=== PATIENT | female | born 1995 | race Caucasian/White ===

== ENCOUNTER 2017-04-25 19:03 | Emergency (ER) | payer BC ==
[~2017-04-25] VITALS: Ht 165.1 cm; Wt 69.1 kg
[2017-04-25 19:08] VITALS: BP 139/93
[2017-04-25 19:38] LABS: HEMATOCRIT 38.6 % (34.6-47.8); HEMOGLOBIN 12.8 g/dL (11.7-16.4); WHITE BLOOD COUNT 11.8 x10^3/uL (3.4-10)
[2017-04-25 19:48] LABS: ASPARTATE AMINO TRANSFERASE 15 U/L (15-37); BLOOD UREA NITROGEN 10 mg/dL (7-18)
[2017-04-25] MEDS ORDERED: CEFTRIAXONE 1,000 MG IM ONE (22:00)
[2017-04-25] MEDS ORDERED: AZITHROMYCIN 500 MG TABLET PO ONE (22:00)
[2017-04-25] MEDS ORDERED: AZITHROMYCIN 250 MG TABLET ONE (22:21)
[2017-04-25] MEDS ORDERED: CEFTRIAXONE 250 MG ONE (22:21)
== END 2017-04-25 22:53 | disposition home or self-care (01) ==
LOC: ED 22:47
DX: R10.2 Pelvic and perineal pain (principal); J45.909 Unspecified asthma, uncomplicated; Z88.0 Allergy status to penicillin; Z90.89 Acquired absence of other organs; Z88.1 Allergy status to other antibiotic agents
CPT/HCPCS: 36415; 76830; 80053; 81001; 83690; 84703; 85025; 87086; 87210; 87491; 87591; 87808; 96372; 99285; J0696

== ENCOUNTER 2017-04-27 08:17 | Emergency (ER) | payer OTHER, BC ==
[~2017-04-27] VITALS: Ht 165.1 cm; Wt 69.1 kg
[2017-04-27 09:00] VITALS: BP 122/76
[2017-04-27] MEDS ORDERED: SODIUM CHLORIDE 0.9% 1,000ML IVBOLUS ONE (09:00)
[2017-04-27] MEDS ORDERED: ONDANSETRON 2MG/ML, 2ML IVPush ONE (09:00)
[2017-04-27] MEDS ORDERED: SODIUM CHLORIDE FLUSH 10ML SYR IVF ONE (09:00)
[2017-04-27] MEDS ORDERED: MORPHINE SULFATE 4 MG/ML, 1ML ONE ×2 (09:13→10:10)
[2017-04-27] MEDS ORDERED: ONDANSETRON 2MG/ML, 2ML ONE (09:13)
[2017-04-27 09:32] LABS: HEMATOCRIT 35.7 % (34.6-47.8); HEMOGLOBIN 11.9 g/dL (11.7-16.4); WHITE BLOOD COUNT 12.7 x10^3/uL (3.4-10)
[2017-04-27] MEDS: MORPHINE SULFATE 4 MG/ML, 1ML IVPush PRN ×2 (09:36→10:12)
[2017-04-27 09:44] LABS: BLOOD UREA NITROGEN 12 mg/dL (7-18)
[2017-04-27] MEDS ORDERED: OMNIPAQUE 350 MG/ML, 100ML BOTTLE ONE (10:04)
[2017-04-27 10:11] LABS: PATH.CAST-FLAG NOT PRESENT; SPERM-FLAG NOT PRESENT; SRC-FLAG NOT PRESENT; XTAL-FLAG NOT PRESENT; YLC-FLAG NOT PRESENT
[2017-04-27] MEDS ORDERED: CEFTRIAXONE PMX 1GM/50ML 50 ML IV ONE (11:00)
[2017-04-27] MEDS ORDERED: CEFTRIAXONE PMX 1GM/50ML 50 ML ONE (11:00)
[2017-04-27] MEDS ORDERED: DOXYCYCLINE 100MG TABLET PO ONE (11:30)
== END 2017-04-27 11:51 | disposition home or self-care (01) ==
LOC: ED 09:34
DX: R10.32 Left lower quadrant pain (principal); N73.0 Acute parametritis and pelvic cellulitis; J45.909 Unspecified asthma, uncomplicated
CPT/HCPCS: 36415; 74177; 80048; 81001; 82040; 85025; 87086; 96361; 96365; 96375; 96376; 99285; J0696; J2405; J7030; Q9967

== ENCOUNTER 2017-05-02 14:24 | Emergency (ER) | payer OTHER, BC ==
[~2017-05-02] VITALS: Ht 165.1 cm; Wt 67.0 kg
[2017-05-02] MEDS ORDERED: KETOROLAC 30 MG/1 ML ONE (15:07)
[2017-05-02] MEDS ORDERED: KETOROLAC 60 MG/2 ML IM ONE (15:30)
[2017-05-02 16:47] VITALS: BP 139/79
== END 2017-05-02 16:49 | disposition home or self-care (01) ==
LOC: ED 16:31
DX: M76.62 Achilles tendinitis, left leg (principal); J45.909 Unspecified asthma, uncomplicated; F17.210 Nicotine dependence, cigarettes, uncomplicated; Z88.1 Allergy status to other antibiotic agents
CPT/HCPCS: 93971; 96372; 99284; J1885

== ENCOUNTER 2019-02-03 12:46 | Emergency (ER) | payer BC, OTHER ==
[~2019-02-03] VITALS: Ht 165.1 cm; Wt 72.4 kg
[2019-02-03 12:51] VITALS: BP 110/65
[2019-02-03 13:29] LABS: HCG UR SG 1.032 (1.003-1.030)
[2019-02-03] MEDS ORDERED: DEXAMETHASONE 4 MG/ML, 5ML ONE (13:38)
[2019-02-03] MEDS ORDERED: IBUPROFEN 200 MG TABLET ONE (13:38)
[2019-02-03] MEDS ORDERED: DEXAMETHASONE 4 MG/ML, 1ML PO ONE (14:00)
[2019-02-03] MEDS ORDERED: IBUPROFEN 800 MG TABLET PO ONE (14:00)
== END 2019-02-03 14:00 | disposition home or self-care (01) ==
LOC: ED 13:48
DX: J02.0 Streptococcal pharyngitis (principal); B95.5 Unspecified streptococcus as the cause of diseases classified elsewhere; Z88.1 Allergy status to other antibiotic agents
CPT/HCPCS: 81025; 99283; J1100

== ENCOUNTER 2019-07-05 19:56 | Emergency (ER) | payer BC, OTHER ==
[~2019-07-05] VITALS: Ht 165.1 cm; Wt 77.7 kg
[2019-07-05 19:58] VITALS: BP 158/92
[2019-07-05] MEDS ORDERED: CEFTRIAXONE 250 MG IM ONE (20:30)
[2019-07-05] MEDS ORDERED: AZITHROMYCIN 500 MG TABLET PO ONE (20:30)
[2019-07-05] MEDS ORDERED: CEFTRIAXONE 250 MG ONE (20:37)
[2019-07-05] MEDS ORDERED: AZITHROMYCIN 500 MG TABLET ONE (20:37)
== END 2019-07-05 21:10 | disposition home or self-care (01) ==
LOC: ED 21:08
DX: Z20.2 Contact with and (suspected) exposure to infections with a predominantly sexual mode of transmission (principal); J45.909 Unspecified asthma, uncomplicated; Z88.1 Allergy status to other antibiotic agents
CPT/HCPCS: 96372; 99283; J0696

== ENCOUNTER 2019-10-17 03:59 | Emergency (ER) | payer OTHER, BC ==
[~2019-10-17] VITALS: Ht 165.1 cm; Wt 76.6 kg
--- NOTE | 2019-10-17 04:30 | NUR ---
THIS IS A 24 YO FEMALE COMING IN FOR PERIUMBILICAL ABD PAIN STARTING AT 1530 YESTERDAY. PATIENT C/O NAUSEA AND DIARRHEA, DIZZINESS AND HEADACHE. NO VOMITING. ABDOMEN IS SOFT AND NON DISTENDED, TENDER TO PALPATION ABOVE AND AROUND UNBILICUS, NO DEFORMITIES NOTED. 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 LMP IS TODAY, PATIENT STARTED SPOTTING, DENIES POSSIBILITY OF . SPO2 AND BP MONITORING IN PLACE. VSS, NAD, CALL LIGHT IN REACH
[2019-10-17] MEDS ORDERED: METF500T17 PO (04:35)
[2019-10-17] MEDS ORDERED: ONDANSETRON 2MG/ML, 2ML ONE (04:38)
[2019-10-17] MEDS ORDERED: ONDANSETRON 2MG/ML, 2ML IVPush ONE (05:00)
[2019-10-17 05:06] LABS: BASOPHILS # (AUTO) 0.02 x10^3/uL (0-0.1); BASOPHILS % (AUTO) 0 % (0-1); EOSINOPHILS # (AUTO) 0.09 x10^3/uL (0-0.4); EOSINOPHILS % (AUTO) 1 % (1-7); LYMPHOCYTES # (AUTO) 2.19 x10^3/uL (1-3.4); LYMPHOCYTES % (AUTO) 22 % (22-44); MD NO; MEAN CORPUSCULAR HEMOGLOBIN 30.7 pg (27.0-34.8); MEAN CORPUSCULAR VOLUME 90.2 fL (80-100); MEAN PLATELET VOLUME 8.1 fL (7.4-10.4); MONOCYTES # (AUTO) 0.66 x10^3/uL (0.2-0.8); MONOCYTES % (AUTO) 7 % (2-9); NEUTROPHILS # (AUTO) 6.84 x10^3/uL (1.8-6.8); NEUTROPHILS % (AUTO) 70 % (42-75); PLATELET COUNT 306 x10^3/uL (130-400); RED BLOOD COUNT 4.43 x10^6/uL (3.82-5.3)
[2019-10-17 05:18] LABS: ALANINE AMINOTRANSFERASE 72 U/L (12-78); ALBUMIN 3.8 g/dL (3.4-5.0); ANION GAP 8 mmol/L (5-15); CALCIUM 8.4 mg/dL (8.5-10.1); CHLORIDE 109 mmol/L (98-107); CREATININE 0.67 mg/dL (0.55-1.02)
[2019-10-17 05:23] LABS: ALKALINE PHOSPHATASE 56 U/L (45-117); BILIRUBIN,TOTAL 0.7 mg/dL (0.2-1.0); TOTAL PROTEIN 7.2 g/dL (6.4-8.2)
--- NOTE | 2019-10-17 06:17 | NUR ---
UA COLLECTED AND WALKED TO LAB
[2019-10-17] MEDS ORDERED: ACETAMINOPHEN 500 MG TABLET ONE (06:22)
[2019-10-17] MEDS ORDERED: METOCLOPRAMIDE 5 MG/ML, 2ML IVPush ONE (06:30)
[2019-10-17] MEDS ORDERED: ACETAMINOPHEN 500 MG TABLET PO ONE (06:30)
[2019-10-17] MEDS ORDERED: METOCLOPRAMIDE 5 MG/ML, 2ML ONE (06:34)
--- NOTE | 2019-10-17 06:39 | NUR ---
PATIENT MEDICATED PER EMAR, TOLERATED WELL. DENIES PAIN AT THIS TIME, PATIENT STATES "IT FEELS LIKE SOMEONE IS PUSHING ON MY BELLY. PA NOTIFIED.
[2019-10-17 06:46] LABS: MICROSCOPIC INDICATED
--- NOTE | 2019-10-17 06:47 | NUR ---
REPORT GIVEN TO LINA PEREZ. PLAN OF CARE DISCUSSED
--- NOTE | 2019-10-17 06:47 | NUR ---
received report from carlos alberto villalobos. pt sitting in bed, no signs of distress, call light in reach, family at bedside.
[2019-10-17 06:48] LABS: CULTURE INDICATED? YES
[2019-10-17 07:51] VITALS: BP 117/82
== END 2019-10-17 07:53 | disposition home or self-care (01) ==
LOC: ED 06:47
DX: R10.33 Periumbilical pain (principal); R11.0 Nausea; J45.909 Unspecified asthma, uncomplicated
CPT/HCPCS: 36415; 80053; 81001; 83690; 84703; 85025; 87086; 96374; 96375; 99284; J2405; J2765

== ENCOUNTER 2019-11-14 08:41 | Emergency (ER) | payer OTHER, BC ==
[~2019-11-14] VITALS: Ht 165.1 cm; Wt 77.6 kg
[~2019-11-14 08:41] MED LIST: METF500T17 PO
[2019-11-14 08:45] VITALS: BP 143/105
--- NOTE | 2019-11-14 09:38 | NUR ---
Patient given discharge instructions and they have confirmed that they understand the instructions. Patient ambulatory with steady gait. Educated on resp. hygiene.
== END 2019-11-14 09:40 | disposition home or self-care (01) ==
LOC: ED 09:09
DX: M94.0 Chondrocostal junction syndrome [Tietze] (principal); B34.9 Viral infection, unspecified; J45.909 Unspecified asthma, uncomplicated
CPT/HCPCS: 99283

== ENCOUNTER 2019-11-18 19:04 | Emergency (ER) | payer OTHER, BC ==
[~2019-11-18] VITALS: Ht 165.1 cm; Wt 76.0 kg
--- NOTE | 2019-11-18 19:22 | NUR ---
THIS IS A 24 YO F W/ C/O SOB. PT WAS SEEN 11/13 AND HAS BEEN ON PREDNISONE AND ALBUTEROL. PT REPORTS USING ALBUTEROL INHALER 5X TODAY. PT STATES THAT IT FEELS LIKE THERE IS "WATER IN MY LUNGS". PAIN CHEST W/ COUGHING. HX:ASTHMA. PT IS TACHYCARDIC, OTHER VS WDL. PT RESTING ON GURNEY CONNECTED TO MONITORING WITH YAHIR JUAREZ AT BEDSIDE.
[2019-11-18] MEDS ORDERED: KETOROLAC 30 MG/1 ML IM ONE (19:30)
[2019-11-18] MEDS ORDERED: KETOROLAC 30 MG/1 ML ONE (19:37)
--- NOTE | 2019-11-18 19:39 | NUR ---
MED JUDITH FROM PHARMACY.
--- NOTE | 2019-11-18 19:47 | NUR ---
PT MEDICATED PER EMAR.
[2019-11-18] MEDS ORDERED: PROMETHAZINE/COD. 10MG/6.25MG/5 ML ORAL SOL PO ONE (20:00)
[2019-11-18 20:43] VITALS: BP 124/72
--- NOTE | 2019-11-18 20:49 | NUR ---
Patient given discharge instructions and they have confirmed that they understand the instructions. Patient ambulatory with steady gait.
== END 2019-11-18 20:51 | disposition home or self-care (01) ==
LOC: ED 19:28
DX: M94.0 Chondrocostal junction syndrome [Tietze] (principal); R05 Cough; R07.89 Other chest pain; J45.909 Unspecified asthma, uncomplicated
CPT/HCPCS: 71045; 96372; 99283; J1885

== ENCOUNTER 2020-01-14 00:17 | Emergency (ER) | payer OTHER, BC ==
[~2020-01-14] VITALS: Ht 165.1 cm; Wt 80.1 kg
[2020-01-14 00:18] VITALS: BP 156/110
[2020-01-14] MEDS ORDERED: FLUORESCEIN OPHTHALMIC 1 MG STRIP EACHEYE ONE (00:30)
[2020-01-14] MEDS ORDERED: PROPARACAINE OPHTH 0.5%, 15ML EACHEYE ONE (00:30)
[2020-01-14] MEDS ORDERED: PROPARACAINE OPHTH 0.5%, 15ML ONE (00:32)
[2020-01-14] MEDS ORDERED: FLUORESCEIN OPHTHALMIC 1 MG STRIP ONE (00:32)
== END 2020-01-14 01:15 | disposition home or self-care (01) ==
LOC: ED 00:39
DX: H10.023 Other mucopurulent conjunctivitis, bilateral (principal); R51 Headache; F17.200 Nicotine dependence, unspecified, uncomplicated; J45.909 Unspecified asthma, uncomplicated; Z90.89 Acquired absence of other organs
CPT/HCPCS: 99283

== ENCOUNTER 2020-01-15 17:56 | Emergency (ER) | payer OTHER, BC ==
[~2020-01-15] VITALS: Ht 165.1 cm; Wt 79.3 kg
[2020-01-15 18:04] VITALS: BP 138/99
[2020-01-15] MEDS ORDERED: FLUORESCEIN OPHTHALMIC 1 MG STRIP ONE (18:33)
[2020-01-15] MEDS ORDERED: PROPARACAINE OPHTH 0.5%, 15ML ONE (18:33)
--- NOTE | 2020-01-15 18:37 | NUR ---
MEDS PULLED FOR PROVIDER ADMIN
--- NOTE | 2020-01-15 18:42 | NUR ---
PT MOVED FROM REGULAR ROOM TO EYE ROOM, PER MD REQUEST.
[2020-01-15] MEDS ORDERED: PROPARACAINE OPHTH 0.5%, 15ML EACHEYE ONE (19:00)
== END 2020-01-15 19:10 | disposition home or self-care (01) ==
LOC: ED 18:28
DX: H10.33 Unspecified acute conjunctivitis, bilateral (principal); J45.909 Unspecified asthma, uncomplicated; F17.210 Nicotine dependence, cigarettes, uncomplicated; Z90.89 Acquired absence of other organs
CPT/HCPCS: 99283; 99406

== ENCOUNTER 2020-04-01 16:53 | Emergency (ER) | payer OTHER, BC ==
[~2020-04-01] VITALS: Ht 165.1 cm; Wt 78.3 kg
[2020-04-01 17:03] VITALS: BP 149/97
[2020-04-01] MEDS ORDERED: DEXAMETHASONE 4 MG TABLET ONE (17:27)
--- NOTE | 2020-04-01 17:29 | NUR ---
radiology at bedside medicated per emar
[2020-04-01] MEDS ORDERED: DEXAMETHASONE 4 MG TABLET PO ONE (17:30)
== END 2020-04-01 18:26 | disposition home or self-care (01) ==
LOC: ED 18:21
DX: J02.9 Acute pharyngitis, unspecified (principal); Z20.828 Contact with and (suspected) exposure to other viral communicable diseases; R50.9 Fever, unspecified; R05 Cough; M79.10 Myalgia, unspecified site; J45.909 Unspecified asthma, uncomplicated; F17.200 Nicotine dependence, unspecified, uncomplicated; Z90.89 Acquired absence of other organs
CPT/HCPCS: 36415; 71045; 87635; 99284

== ENCOUNTER 2020-08-27 00:20 | Emergency (ER) | payer OTHER, BC ==
[~2020-08-27] VITALS: Ht 165.1 cm; Wt 78.0 kg
--- NOTE | 2020-08-27 00:49 | NUR ---
REPORT FROM GUILLE MILLS.
[2020-08-27 01:11] LABS: BASOPHILS % (AUTO) 1 % (0-1); EOSINOPHILS % (AUTO) 2 % (1-7); LYMPHOCYTES % (AUTO) 27 % (22-44); MEAN CORPUSCULAR HEMOGLOBIN 30.3 pg (27.0-34.8); MEAN CORPUSCULAR HGB CONC 33.2 g/dL (32.4-35.8); MEAN PLATELET VOLUME 7.9 fL (7.4-10.4); MONOCYTES % (AUTO) 7 % (2-9); NEUTROPHILS % (AUTO) 64 % (42-75); PLATELET COUNT 364 x10^3/uL (130-400); RED BLOOD COUNT 4.61 x10^6/uL (3.82-5.3); RED CELL DISTRIBUTION WIDTH 13.6 % (9.6-15.2)
[2020-08-27 01:13] LABS: MD NO
[2020-08-27 01:17] LABS: ALBUMIN 3.9 g/dL (3.4-5.0); ANION GAP 3 mmol/L (5-15); CALCIUM 8.8 mg/dL (8.5-10.1); CHLORIDE 110 mmol/L (98-107); CREATININE 0.91 mg/dL (0.55-1.02)
[2020-08-27 02:04] VITALS: BP 124/73
== END 2020-08-27 02:06 | disposition home or self-care (01) ==
LOC: ED 01:45
DX: N93.8 Other specified abnormal uterine and vaginal bleeding (principal); R11.0 Nausea; J45.909 Unspecified asthma, uncomplicated; F17.200 Nicotine dependence, unspecified, uncomplicated; Z98.51 Tubal ligation status; Z90.89 Acquired absence of other organs
CPT/HCPCS: 36415; 80048; 82040; 84703; 85025; 99283

== ENCOUNTER 2020-11-13 04:38 | Emergency (ER) | payer OTHER, BC ==
[~2020-11-13] VITALS: Ht 165.1 cm; Wt 81.0 kg
[2020-11-13 04:55] VITALS: BP 160/95
== END 2020-11-13 05:25 | disposition home or self-care (01) ==
LOC: ED 05:19
DX: K02.9 Dental caries, unspecified (principal); J45.909 Unspecified asthma, uncomplicated
CPT/HCPCS: 99283

== ENCOUNTER 2021-05-09 08:43 | Emergency (ER) | payer OTHER, BC ==
[~2021-05-09] VITALS: Ht 165.1 cm; Wt 79.1 kg
[2021-05-09 09:17] VITALS: BP 167/107
--- NOTE | 2021-05-09 09:32 | NUR ---
Patient to room from lobby
[2021-05-09 09:52] LABS: MICROSCOPIC INDICATED
[2021-05-09 10:34] LABS: BASOPHILS % (AUTO) 0 % (0-1); EOSINOPHILS % (AUTO) 2 % (1-7); LYMPHOCYTES % (AUTO) 25 % (22-44); MEAN CORPUSCULAR HGB CONC 33.8 g/dL (32.4-35.8); MONOCYTES % (AUTO) 7 % (2-9); NEUTROPHILS % (AUTO) 66 % (42-75); PLATELET COUNT 357 x10^3/uL (130-400); RED BLOOD COUNT 4.41 x10^6/uL (3.82-5.3); RED CELL DISTRIBUTION WIDTH 14.4 % (9.6-15.2)
[2021-05-09 10:46] LABS: ALANINE AMINOTRANSFERASE 40 U/L (12-78); ALBUMIN 3.3 g/dL (3.4-5.0); ANION GAP 9 mmol/L (5-15); CALCIUM 8.5 mg/dL (8.5-10.1); CHLORIDE 109 mmol/L (98-107); CREATININE 0.63 mg/dL (0.55-1.02)
[2021-05-09 10:50] LABS: ALKALINE PHOSPHATASE 57 U/L (45-117); BILIRUBIN,TOTAL 0.3 mg/dL (0.2-1.0); TOTAL PROTEIN 7.2 g/dL (6.4-8.2)
--- NOTE | 2021-05-09 11:16 | NUR ---
patient states she is nauseous but refuses any zofran at this time. report given to naman. waiting for labs to come back
[2021-05-09] MEDS ORDERED: KETOROLAC 30 MG/1 ML ONE ×2 (11:42→11:45)
[2021-05-09] MEDS ORDERED: KETOROLAC 30 MG/1 ML IM ONE (12:00)
== END 2021-05-09 11:51 | disposition home or self-care (01) ==
LOC: ED 09:33
DX: R10.2 Pelvic and perineal pain (principal); J45.909 Unspecified asthma, uncomplicated; F17.200 Nicotine dependence, unspecified, uncomplicated
CPT/HCPCS: 36415; 76830; 80053; 81001; 84703; 85025; 87086; 96372; 99284; J1885